=== PATIENT | male | born 2000 | race Caucasian/White ===

== ENCOUNTER 2022-02-20 13:48 | Emergency (ER) | payer BC, SELFPAY ==
--- NOTE | 2022-02-20 14:01 | ED.GENADULT ---
HPI - General Adult General Chief complaint: Upper Respiratory Infection Stated complaint: Sore Throat,Headache,Lt Arm Pain History of Present Illness HPI narrative: 22 y/o male. PMHx None reported. Presents to [facility] today with acute complaints of Sore Throat, DENG, & Body aches for the past 24 hours. He tells me that his Mother at home had tested positive for Covid 19 viral illness in the past 1 week. He to, is concerned for viral syndrome. -No fevers, neck pain. -No dizziness, visual changes, focal weakness. -Mild cough, no chest pain, palpitations, wheezing, dyspnea, edema. -No GI upset, N/V/D. No additional acute c/o upon PE. Related Data Home Medications Medication Instructions Recorded Confirmed No Home Medications 02/20/22 02/20/22 Allergies Allergy/AdvReac Type Severity Reaction Status Date / Time No Known Allergies Allergy Mild Verified 02/20/22 13:53 Review of Systems Review of Systems: CONSTITUTIONAL: Denies fever, sweats, chills. + Body Aches. EYES: Denies visual changes, redness, discharge. ENT: + rhinorrhea, congestion. No sore throat, otalgia. CARDIOVASCULAR: Denies chest pain, palpitations, edema. RESPIRATORY: Intermittent cough. No dyspnea, wheezing. GASTROINTESTINAL: Denies abdominal pain, nausea, vomiting, diarrhea. GENITOURINARY: Denies dysuria, hematuria, abnormal discharge SKIN: Denies rash or itching. MUSCULOSKELETAL: Denies acute back pain, joint pain. NEUROLOGIC: Denies numbness, or focal weakness. PSYCHIATRIC: Denies anxiety or depression. Exam Narrative: GENERAL: This is a well-nourished, well-developed adult, in no apparent distress. HEAD: normocephalic. EYES: Sclera clear/white. EARS: External ears normal, auditory canals clear and without drainage, TMs normal. NOSE: External nose normal. Positive Rhinorrhea, no obstruction, nares patent. THROAT: Mucous membranes moist, posterior pharynx erythema. No exudates. NECK: Neck supple, non-tender without lymphadenopathy, masses or thyromegaly. CARDIOVASCULAR: Regular rate and rhythm without murmurs, gallops, or rubs. RESPIRATORY: Clear to auscultation. Breath sounds equal bilaterally. No wheezes, rales, or rhonchi. GASTROINTESTINAL: Abdomen soft, non-tender, nondistended. Bowel sounds are active. No guarding. SKIN: warm, intact with no suspicious lesions or rash. NEURO: Alert & Age appropriate, no focal neurological deficits. Course Course Level of Care: Express Care Visit Vital Signs Vital signs: Vital Signs Temperature 36.9 C 02/20/22 14:09 Pulse Rate 90 02/20/22 14:09 Respiratory Rate 18 02/20/22 14:09 Blood Pressure 140/89 02/20/22 14:09 Pulse Oximetry 100 02/20/22 14:09 Oxygen Delivery Room Air 02/20/22 14:09 Temperature 36.9 C 02/20/22 14:09 Pulse Rate 90 02/20/22 14:09 Respiratory Rate 18 02/20/22 14:09 Blood Pressure 140/89 02/20/22 14:09 Pulse Oximetry 100 02/20/22 14:09 Oxygen Delivery Room Air 02/20/22 14:09 Medical Decision Making MDM Narrative Medical decision making narrative: -Viral symptoms, in the setting of recent known Covid exposure. -No hypoxemia, not requiring supplemental O2. Does not meet IP inclusion criteria. -Appears non-toxic. -SARS Covid: Positive. -Rapid Strep: Negative. -DC to home stable. Additional Viral Care instructions have been reviewed. -Resume home self isolation and quarantine per current CDC guidelines. -Resume OTC remedies prn for symptomatic reliefs. -PCP F/U 1WK. -ER W/Emergent health status changes. Pt agrees. Differential Diagnosis Differential Diagnosis: Differential Diagnosis: Consideration of the following conditions may be warranted for the presenting problem, they are not final diagnoses: upper respiratory infection, otitis media, sinusitis, RSV viral infection, bronchitis, pharyngitis, Streptococcal sore throat, COVID-19, and other. Vital Signs Vital Signs: Vital Signs Temperature
[2022-02-20 14:09] VITALS: BP 140/89; PULSE 90; RESP 18; TEMP 36.9; O2SAT 100
--- NOTE | 2022-02-20 14:18 | PC.NURSE ---
N.P. william no strep culture.Pt. was covid positive.
== END 2022-02-20 14:22 | disposition home or self-care (01) ==
PROVIDERS: Emergency Provider Nurse Practitioner Adult Health; PCP Pediatrics
DX: U07.1 COVID-19 (principal)
CPT/HCPCS: 87426; 87880; 99213; C9803; G0463

== ENCOUNTER 2023-09-10 10:26 | Outpatient (CLI) | payer BC, SELFPAY ==
--- NOTE | ~2023-09-10 | US_ITS ---
US scrotum doppler INDICATION: Mass of the left testicle for one year TECHNIQUE: Testicular sonogram utilizing grayscale and color Doppler FINDINGS: The testes are normal in size and appearance. No focal lesions are seen. The right testes measures 4.9 x 2.2 x 2.6 cm centimeters, and the left testis measures 4.5 x 2 x 2.8 cm cm. There is n ormal vascular flow to both testes. There is a small irregular shaped hypoechoic mass of the scrotal wall at the midline anteriorly in the area palpable concern measuring 1.3 x 0.5 x 0.6 cm. No internal vascularity. The right and left epididymides appear normal. There is a left varicocele. IMPRESSION: 1. Irregular shaped hypoechoic mass of the scrotal wall measuring up to 1.3 cm in the area of palpab le concern. Consider atypical sebaceous cyst and infection in the appropriate clinical setting. 2: Left varicocele. Reviewed, dictated and finalized at location B. IMPRESSION: 1. Irregular shaped hypoechoic mass of the scrotal wall measuring up to 1.3 cm in the area of palpable concern. Consider atypical sebaceous cyst and infectio n in the appropriate clinical setting. 2: Left varicocele.
== END 2023-09-10 10:27 ==
LOC: MICIMG 10:27
PROVIDERS: PCP Nurse Practitioner Family; Visit Provider Nurse Practitioner Family
DX: N50.89 Other specified disorders of the male genital organs (principal)
CPT/HCPCS: 76870; 93976